=== PATIENT | male | born 1990 | race African-American/Black ===

== ENCOUNTER 2017-06-21 21:10 | Emergency (ER) | payer MEDICAID ==
[~2017-06-21] VITALS: Ht 182.9 cm; Wt 64.0 kg
[2017-06-21 21:29] VITALS: BP 109/56
== END 2017-06-22 03:40 | disposition left against medical advice (07) ==
LOC: ER 21:10
DX: Z53.21 Procedure and treatment not carried out due to patient leaving prior to being seen by health care provider (principal)

== ENCOUNTER 2017-06-23 00:58 | Emergency (ER) | payer MEDICAID ==
[~2017-06-23] VITALS: Ht 182.9 cm; Wt 64.0 kg
[2017-06-23] MEDS ORDERED: IBUPROFEN 600MG TABLET PO ONE (03:00)
[2017-06-23 04:25] VITALS: BP 117/78
== END 2017-06-23 04:38 | disposition home or self-care (01) ==
LOC: ER 00:58
DX: S62.525A Nondisplaced fracture of distal phalanx of left thumb, initial encounter for closed fracture (principal); F12.10 Cannabis abuse, uncomplicated; Y00.XXXA Assault by blunt object, initial encounter; Y93.89 Activity, other specified; Y92.018 Other place in single-family (private) house as the place of occurrence of the external cause
CPT/HCPCS: 29125; 73140; 99284

== ENCOUNTER 2017-07-22 20:50 | Emergency (ER) | payer MEDICAID, OTHER ==
[~2017-07-22] VITALS: Ht 180.3 cm; Wt 59.0 kg
[2017-07-22 21:19] VITALS: BP 116/74
== END 2017-07-23 00:28 | disposition left against medical advice (07) ==
LOC: ER 20:50
DX: Z53.21 Procedure and treatment not carried out due to patient leaving prior to being seen by health care provider (principal)

== ENCOUNTER 2022-03-14 09:02 | Emergency (ER) | payer OTHER ==
[~2022-03-14] VITALS: Ht 185.4 cm; Wt 63.0 kg
[2022-03-14] MEDS ORDERED: IBUPROFEN 600MG TABLET PO ONE (09:15)
[2022-03-14 09:31] VITALS: BP 114/67
[2022-03-14] MEDS ORDERED: IBUP-2029 MT (10:03)
[2022-03-14] MEDS ORDERED: AMOX-424 MT (10:03)
[2022-03-14] MEDS ORDERED: TETANUS, DIPHTHERIA, PERTUSSIS VAC/PF 0.5ML (>10YR OLD) IM ONE (10:15)
== END 2022-03-14 10:33 | disposition home or self-care (01) ==
LOC: ER 09:02
DX: S62.397A Other fracture of fifth metacarpal bone, left hand, initial encounter for closed fracture (principal); S60.512A Abrasion of left hand, initial encounter; Y04.0XXA Assault by unarmed brawl or fight, initial encounter; Y93.89 Activity, other specified; Y92.89 Other specified places as the place of occurrence of the external cause
CPT/HCPCS: 29125; 73130; 99283

== ENCOUNTER 2023-11-12 19:23 | Emergency (ER) | payer OTHER ==
[~2023-11-12] VITALS: Ht 182.9 cm; Wt 66.0 kg
[~2023-11-12 19:23] MED LIST: AMOX-424 MT; IBUP-2029 MT
[2023-11-12 19:54] VITALS: BP 108/90; PULSE 104; RESP 18; TEMP 98.4; O2SAT 100
== END 2023-11-12 20:44 | disposition left against medical advice (07) ==
LOC: ER 19:23
DX: J02.9 Acute pharyngitis, unspecified (principal); Z53.21 Procedure and treatment not carried out due to patient leaving prior to being seen by health care provider
CPT/HCPCS: 99281

== ENCOUNTER 2023-11-12 21:28 | Emergency (ER) | payer OTHER ==
[2023-11-12 21:44] VITALS: PULSE 96
== END 2023-11-13 01:04 | disposition left against medical advice (07) ==
LOC: ER 21:28
DX: J02.9 Acute pharyngitis, unspecified (principal); Z53.21 Procedure and treatment not carried out due to patient leaving prior to being seen by health care provider
CPT/HCPCS: 99281

== ENCOUNTER 2024-06-23 17:07 | Emergency (ER) | payer SELFPAY ==
[~2024-06-23] VITALS: Ht 182.9 cm; Wt 68.0 kg
[2024-06-23 17:47] VITALS: O2SAT 98
[2024-06-23 20:15] VITALS: BP 150/80; PULSE 60; RESP 20; TEMP 36.83628; O2SAT 98
== END 2024-06-23 20:14 | disposition home or self-care (01) ==
LOC: ER 17:07
DX: T65.893A Toxic effect of other specified substances, assault, initial encounter (principal); H57.13 Ocular pain, bilateral; F12.90 Cannabis use, unspecified, uncomplicated; Y92.89 Other specified places as the place of occurrence of the external cause
CPT/HCPCS: 99282